=== PATIENT | male | born 1990 | race African-American/Black ===

== ENCOUNTER 2017-05-13 06:20 | Emergency (ER) | payer SELFPAY ==
[2017-05-13] MEDS ORDERED: Ibuprofen 800 MG TAB ONE (07:01)
[2017-05-13] MEDS ORDERED: Acetaminophen 500 MG TAB ONE (07:01)
== END 2017-05-13 08:30 | disposition home or self-care (01) ==
LOC: MADERS 06:20
DX: S00.03XA Contusion of scalp, initial encounter (principal); T14.8XXA Other injury of unspecified body region, initial encounter; V54.5XXA Driver of pick-up truck or van injured in collision with heavy transport vehicle or bus in traffic accident, initial encounter
CPT/HCPCS: 99284